=== PATIENT | female | born 1940 | race Caucasian/White ===

== ENCOUNTER 2016-06-05 16:40 | Emergency (ER) | payer MEDICARE ==
[~2016-06-05] VITALS: Ht 162.6 cm; Wt 44.5 kg
[~2016-06-05 16:40] MED LIST: ALBU8.5H8 INH; BENZ100C67 PO; FLUT1DIS5; HYDR-1189 PO; OMEP20CA10 PO; ONDA4TAB22 PO; ROPI0.252 PO; SPIRIVA IH; TYC3 PO
[2016-06-05 16:59] VITALS: BP 143/78; PULSE 111; RESP 16; TEMP 99.1; O2SAT 95
[2016-06-05] MEDS ORDERED: IPRATROPIUM/ALBUTEROL SULFATE 3 ML AMPUL.NEB INH ONE (17:00)
[2016-06-05] MEDS ORDERED: IPRATROPIUM/ALBUTEROL SULFATE 3 ML AMPUL.NEB ONE (17:00)
[2016-06-05] MEDS ORDERED: methylPREDNISolone SOD SUCC/PF 62.5 MG/ML VIAL IVP ONE (17:00)
[2016-06-05] MEDS ORDERED: WARF2TAB2 PO (17:45)
[2016-06-05] MEDS ORDERED: SIMV40TA5 PO (17:45)
[2016-06-05] MEDS ORDERED: GABA-531 PO (17:45)
[2016-06-05] MEDS ORDERED: METO-290 PO (17:45)
[2016-06-05] MEDS ORDERED: VENL37.510 PO (17:45)
[2016-06-05] MEDS ORDERED: NACL 0.9% 1,000 ML IV ONE (17:45)
[2016-06-05] MEDS ORDERED: FAMO40TA7 PO (17:45)
[2016-06-05] MEDS ORDERED: LORA1TAB PO (17:45)
[2016-06-05] MEDS ORDERED: METO-442 PO (17:45)
[2016-06-05 18:05] LABS: ABG TOTAL HEMOGLOBIN 11.9 G/dL (12.0-18.0); BLOOD GAS PH 7.486 (7.350-7.450)
[2016-06-05 18:06] LABS: BLOOD GAS COHb% 0.8 % (0.5-1.5); BLOOD GAS HHB 3.8 % (0.0-6.0); BLOOD O2Hb% 95.1 % (94.0-97.0)
[2016-06-05 19:38] LABS: BASOPHILS % (AUTO) 0.1 % (0.0-2.0); EOSINOPHILS % (AUTO) 0.1 % (0.0-4.0); HEMATOCRIT 27.8 % (36-48); HEMOGLOBIN 9.5 g/dL (12.0-16.0); LYMPHOCYTES # (AUTO) 0.7 K/uL (1.0-5.5); LYMPHOCYTES % (AUTO) 6.4 % (20.5-51.5); MEAN CORPUSCULAR HEMOGLOBIN 33 pg (27-31); MEAN CORPUSCULAR HGB CONC 34 % (32-36); MEAN CORPUSCULAR VOLUME 96 fL (79.0-98.0); MONOCYTES # (AUTO) 0.4 K/uL (0.0-1.0); MONOCYTES % (AUTO) 3.9 % (1.7-9.3); NEUTROPHILS # (AUTO) 9.9 K/uL (1.8-7.7); NEUTROPHILS % (AUTO) 89.5 % (40.0-70.0); PLATELET COUNT (AUTO) 346 K/uL (130-430); RED BLOOD CELL COUNT(AUTO) 2.89 MIL/uL (4.2-6.2); RED CELL DISTRIBUTION WIDTH 12.3 % (9.0-15.0)
[2016-06-05] MEDS ORDERED: cefTRIAXone 1 GM VIAL ONE (19:43)
[2016-06-05] MEDS ORDERED: cefTRIAXone 1 GM in D5W 50 ML IV ONE (19:45)
[2016-06-05 20:26] LABS: ANION GAP 9 (5-15); CALCIUM 8.9 mg/dL (8.4-11.0); CHLORIDE 101 mmol/L (98-107); CREATININE 0.67 mg/dL (0.55-1.30); GLUCOSE 106 mg/dL (70-99); POTASSIUM 4.3 mmol/L (3.5-5.1); SODIUM SERUM 140 mmol/L (136-145); UREA NITROGEN, BLOOD 13 mg/dL (8-21)
[2016-06-05 20:31] LABS: ALANINE AMINOTRANSFERASE 12 U/L (12-78); ALBUMIN 2.4 g/dL (3.4-4.8); ASPARTATE AMINOTRANSFERASE 12 U/L (10-37); TOTAL BILIRUBIN 0.3 mg/dL (0.0-1.0); TOTAL PROTEIN, SERUM 6.9 g/dL (6.4-8.3)
[2016-06-05] MEDS ORDERED: LevALBUTEROL HCL 1.25 MG/0.5 ML *CONC.* VIAL.NEB (XOPENEX CONC.) INH ONE (21:45)
[2016-06-05] MEDS ORDERED: IPRATROPIUM BROM 0.5 MG/2.5 ML VIAL.NEB (ATROVENT) IH ONE (21:45)
[2016-06-05 22:06] LABS: BLOOD, URINE NEGATIVE (NEGATIVE); CLARITY/URINE CLEAR (CLEAR); COLOR,URINE YELLOW (YELLOW); GLUCOSE,URINE NEGATIVE (NEGATIVE); KETONES,URINE 1+ (NEGATIVE); LEUKOCYTE ESTERASE ,URINE NEGATIVE (NEGATIVE); NITRITE, URINE NEGATIVE (NEGATIVE); PROTEIN URINE 1+ (NEGATIVE); UROBILINOGEN,URINE 0.2 (0.2-1.0)
[2016-06-05 22:14] LABS: BILIRUBIN,URINE NEGATIVE (NEGATIVE)
[2016-06-05 22:16] LABS: RBC,URINE 0-3 /HPF (0-3)
[2016-06-05 22:17] LABS: BACTERIA,URINE FEW /HPF (None Seen)
[2016-06-05 22:18] LABS: MUCUS,URINE None Seen /LPF (None Seen)
[2016-06-06 00:50] VITALS: BP 147/74; PULSE 115; RESP 16; TEMP 98.3; O2SAT 94
== END 2016-06-06 00:50 | disposition short-term general hospital (02) ==
LOC: SED 16:40
DX: J18.9 Pneumonia, unspecified organism (principal); J44.9 Chronic obstructive pulmonary disease, unspecified; D64.9 Anemia, unspecified; I10 Essential (primary) hypertension; Z99.81 Dependence on supplemental oxygen
CPT/HCPCS: 36415; 36600; 71010; 80053; 81000; 82803; 83605; 83880; 84484; 85025; 85730; 86710; 87040; 87086; 93005; 94640; 96361; 96365; 96375; 99285; J0696; J2930; J7030; J7060

== ENCOUNTER 2018-11-07 16:17 | Inpatient (IN) | payer OTHER, MEDICAID ==
[~2018-11-07] VITALS: Ht 167.6 cm; Wt 39.9 kg
[~2018-11-07 16:17] MED LIST changes: +BENZ-16 PO; -BENZ100C67 PO; +FAMO40TA7 PO; -FLUT1DIS5; +GABA-531 PO; -HYDR-1189 PO; +LORA1TAB PO; +METO-290 PO; +METO-442 PO; +SIMV40TA5 PO; -SPIRIVA IH; +VENL37.510 PO; +WARF2TAB2 PO
[2018-11-07 16:31] VITALS: BP_SYST 149
[2018-11-07 16:47] LABS: BILIRUBIN,URINE NEGATIVE (NEGATIVE); BLOOD, URINE NEGATIVE (NEGATIVE); CLARITY/URINE CLEAR (CLEAR); COLOR,URINE YELLOW (YELLOW); GLUCOSE,URINE NEGATIVE (NEGATIVE); KETONES,URINE NEGATIVE (NEGATIVE); NITRITE, URINE NEGATIVE (NEGATIVE); PROTEIN URINE NEGATIVE (NEGATIVE); UROBILINOGEN,URINE 0.2 (0.2-1.0)
[2018-11-07 16:55] LABS: LEUKOCYTE ESTERASE ,URINE NEGATIVE (NEGATIVE)
[2018-11-07 16:57] LABS: BASOPHILS % (AUTO) 0.4 % (0.0-2.0); EOSINOPHILS # (AUTO) 0.1 K/uL (0.0-0.4); EOSINOPHILS % (AUTO) 2.4 % (0.0-4.0); HEMATOCRIT 35.6 % (36-48); HEMOGLOBIN 11.8 g/dL (12.0-16.0); LYMPHOCYTES # (AUTO) 1.4 K/uL (1.0-5.5); LYMPHOCYTES % (AUTO) 26.8 % (20.5-51.5); MEAN CORPUSCULAR HEMOGLOBIN 33 pg (27-31); MEAN CORPUSCULAR HGB CONC 33 % (32-36); MEAN CORPUSCULAR VOLUME 99 fL (79.0-98.0); MONOCYTES # (AUTO) 0.7 K/uL (0.0-1.0); NEUTROPHILS # (AUTO) 3.1 K/uL (1.8-7.7); NEUTROPHILS % (AUTO) 57.4 % (40.0-70.0); PLATELET COUNT (AUTO) 214 K/uL (130-430); RED CELL DISTRIBUTION WIDTH 12.7 % (9.0-15.0); WHITE BLOOD COUNT (AUTO) 5.4 K/uL (4.8-10.8)
[2018-11-07 17:08] LABS: ANION GAP 5 (5-15); CALCIUM 9.8 mg/dL (8.4-11.0); CHLORIDE 99 mmol/L (98-107); GLUCOSE 74 mg/dL (70-99); POTASSIUM 4.3 mmol/L (3.5-5.1); SODIUM SERUM 138 mmol/L (136-145); UREA NITROGEN, BLOOD 20 mg/dL (8-21)
[2018-11-07 17:12] LABS: ALANINE AMINOTRANSFERASE 20 U/L (12-78); ALBUMIN 3.6 g/dL (3.4-4.8); ASPARTATE AMINOTRANSFERASE 16 U/L (10-37); INR 0.9 (0.8-1.2); PROTHROMBIN TIME 9.1 SECS (9.5-12.5); TOTAL BILIRUBIN 0.3 mg/dL (0.0-1.0)
[2018-11-07] MEDS ORDERED: ACET-2165 PO (18:02)
[2018-11-07] MEDS ORDERED: CYAN100010 PO (18:02)
[2018-11-07] MEDS ORDERED: HYDR-3606 PO (18:02)
[2018-11-07] MEDS ORDERED: IPRA4AER INH (18:02)
[2018-11-07] MEDS ORDERED: LORA-258 PO (18:02)
[2018-11-07] MEDS ORDERED: ASCO500T20 PO (18:02)
[2018-11-07] MEDS ORDERED: FLUT1BLS5 IH (18:02)
[2018-11-07] MEDS ORDERED: POLY17PO4 PO (18:02)
[2018-11-07] MEDS ORDERED: DOCU-144 PO (18:02)
[2018-11-07] MEDS ORDERED: BISA10SU61 RC (18:02)
[2018-11-07] MEDS ORDERED: ONDA4TAB5 PO (18:02)
[2018-11-07] MEDS ORDERED: MULT-976 PO (18:02)
[2018-11-07] MEDS ORDERED: PRAM0.253 PO (18:02)
[2018-11-07] MEDS ORDERED: MOM PO (18:02)
[2018-11-07 19:04] VITALS: BP_SYST 146
[2018-11-07 19:30] VITALS: BP_SYST 134
[2018-11-08 00:46] VITALS: BP_SYST 162
[2018-11-08] MEDS ORDERED: CYANOCOBALAMIN 1000 mCg TABLET PO PRN (01:15)
[2018-11-08] MEDS ORDERED: HYDROcodone/ACETAMIN 5-325 MG TAB (NORCO/ VICODIN) PO PRN (01:15)
[2018-11-08] MEDS ORDERED: POLYETHYLENE GLYCOL 3350, 17 GM/ POWD.PACK PO SCH (01:15)
[2018-11-08] MEDS ORDERED: roPINIRole HCL 0.25 MG ( REQUIP )TABLET PO SCH ×2 (01:15→21:00)
[2018-11-08] MEDS ORDERED: MILK OF MAGNESIA 30 ML UDC PO SCH (01:15)
[2018-11-08] MEDS ORDERED: ACETAMINOPHEN 325 MG TABLET PO PRN (01:15)
[2018-11-08] MEDS ORDERED: BISACODYL 10 MG/SUPPOSITORY RC PRN (01:15)
[2018-11-08] MEDS ORDERED: AZITHROMYCIN 250 MG in NS 250 ML IV SCH (01:45)
[2018-11-08] MEDS ORDERED: IPRATROPIUM/ALBUTEROL SULFATE 3 ML AMPUL.NEB (DUONEB) INH PRN (01:45)
[2018-11-08 02:00] VITALS: BP_SYST 162
[2018-11-08] MEDS ORDERED: IPRATROPIUM/ALBUTEROL SULFATE 3 ML AMPUL.NEB (DUONEB) INH SCH (02:00)
[2018-11-08] MEDS ORDERED: AZITHROMYCIN 500 MG/VIAL (ZITHROMAX) IV ONE (03:02)
[2018-11-08] MEDS: cefTRIAXone 1 GM in D5W 50 ML IV SCH (03:12)
[2018-11-08] MEDS ORDERED: AZITHROMYCIN 500 MG in NS 250 ML IV SCH (05:00)
[2018-11-08 08:19] VITALS: BP_SYST 137
[2018-11-08] MEDS ORDERED: OMEPRAZOLE Non-Formulary 20 MG CAPSULE.DR PO SCH (09:00)
[2018-11-08] MEDS ORDERED: FAMOTIDINE 20 MG TABLET PO SCH (09:00)
[2018-11-08] MEDS ORDERED: METOPROLOL TARTRATE 50 MG TABLET PO SCH (09:00)
[2018-11-08] MEDS ORDERED: Effexor 37.5 MG TAB PO SCH (09:00)
[2018-11-08] MEDS: BENZONATATE 100 MG CAPSULE (TESSALON) PO SCH ×2 (09:30→15:23)
[2018-11-08] MEDS: FAMOTIDINE 20 MG TABLET PO SCH ×2 (09:31→21:53)
[2018-11-08] MEDS: CYANOCOBALAMIN 1000 mCg TABLET PO SCH (09:31)
[2018-11-08] MEDS: ONDANSETRON HCL 4 MG/2 ML VIAL IVP PRN (11:19)
[2018-11-08 12:03] VITALS: BP_SYST 149
[2018-11-08] MEDS ORDERED: AZITHROMYCIN 500 MG in D5W 250 ML IV SCH (13:00)
[2018-11-08 13:56] LABS: PROTHROMBIN TIME 9.9 SECS (9.5-12.5)
[2018-11-08] MEDS ORDERED: WARFARIN SODIUM 5 MG TABLET PO ONE ×2 (16:15→18:00)
[2018-11-08 17:06] VITALS: BP_SYST 147
[2018-11-08] MEDS ORDERED: PRAM0.253 PO (17:29)
[2018-11-08] MEDS ORDERED: LORazepam 1 MG TABLET PO PRN (17:45)
[2018-11-08] MEDS ORDERED: WARFARIN SODIUM 2 MG TABLET PO SCH (18:00)
[2018-11-08 20:00] VITALS: BP_SYST 138
[2018-11-08] MEDS ORDERED: GABAPENTIN 300 MG CAPSULE PO SCH (21:00)
[2018-11-08] MEDS ORDERED: SIMVASTATIN 40 MG TABLET PO SCH (21:00)
[2018-11-08] MEDS: DOCUSATE SODIUM 100 MG CAPSULE PO SCH (21:00)
[2018-11-08] MEDS: PRAMIPEXOLE DI-HCL 0.25 MG TABLET PO SCH (21:53)
[2018-11-09] VITALS: BP_SYST 126
[2018-11-09] MEDS: cefTRIAXone 1 GM in D5W 50 ML IV SCH (02:17)
[2018-11-09 06:40] LABS: BASOPHILS % (AUTO) 0.8 % (0.0-2.0); EOSINOPHILS # (AUTO) 0.2 K/uL (0.0-0.4); EOSINOPHILS % (AUTO) 5.7 % (0.0-4.0); HEMATOCRIT 30.7 % (36-48); HEMOGLOBIN 10.5 g/dL (12.0-16.0); LYMPHOCYTES # (AUTO) 1.3 K/uL (1.0-5.5); LYMPHOCYTES % (AUTO) 36.5 % (20.5-51.5); MEAN CORPUSCULAR HEMOGLOBIN 33 pg (27-31); MEAN CORPUSCULAR HGB CONC 34 % (32-36); MEAN CORPUSCULAR VOLUME 97 fL (79.0-98.0); MONOCYTES # (AUTO) 0.4 K/uL (0.0-1.0); MONOCYTES % (AUTO) 12.1 % (1.7-9.3); NEUTROPHILS # (AUTO) 1.6 K/uL (1.8-7.7); NEUTROPHILS % (AUTO) 44.9 % (40.0-70.0); PLATELET COUNT (AUTO) 170 K/uL (130-430); RED BLOOD CELL COUNT(AUTO) 3.15 MIL/uL (4.2-6.2); RED CELL DISTRIBUTION WIDTH 12.4 % (9.0-15.0); WHITE BLOOD COUNT (AUTO) 3.6 K/uL (4.8-10.8)
[2018-11-09 06:44] LABS: ANION GAP 4 (5-15); CALCIUM 9.2 mg/dL (8.4-11.0); CHLORIDE 98 mmol/L (98-107); CREATININE 0.75 mg/dL (0.55-1.30); GLUCOSE 101 mg/dL (70-99); POTASSIUM 4.4 mmol/L (3.5-5.1); SODIUM SERUM 137 mmol/L (136-145); UREA NITROGEN, BLOOD 16 mg/dL (8-21)
[2018-11-09] MEDS: BUDESONIDE 0.5 MG/2 ML AMPUL.NEB INH SCH ×2 (07:00→20:03)
[2018-11-09] MEDS: IPRATROPIUM/ALBUTEROL SULFATE 3 ML AMPUL.NEB (DUONEB) INH SCH ×3 (07:00→19:51)
[2018-11-09 08:00] VITALS: BP_SYST 126
[2018-11-09] MEDS: FAMOTIDINE 20 MG TABLET PO SCH ×2 (08:08→21:33)
[2018-11-09] MEDS: DOCUSATE SODIUM 100 MG CAPSULE PO SCH ×2 (08:08→21:00)
[2018-11-09] MEDS: ASCORBIC ACID 500 MG TABLET PO SCH (08:08)
[2018-11-09] MEDS: CYANOCOBALAMIN 1000 mCg TABLET PO SCH (08:08)
[2018-11-09] MEDS ORDERED: NON-FORMULARY MEDICATION (Fluticasone/Umeclidin/Vilanter (Trelegy Ellipta 100-62.5-25) 1 E IH SCH (09:00)
[2018-11-09 09:55] LABS: PROTHROMBIN TIME 9.9 SECS (9.5-12.5)
[2018-11-09 12:37] VITALS: BP_SYST 135
[2018-11-09] MEDS: AZITHROMYCIN 500 MG in D5W 250 ML IV SCH (13:12)
[2018-11-09] MEDS: ONDANSETRON HCL 4 MG/2 ML VIAL IVP PRN (14:16)
[2018-11-09 16:13] VITALS: BP_SYST 134
[2018-11-09 20:00] VITALS: BP_SYST 128
[2018-11-09] MEDS: PRAMIPEXOLE DI-HCL 0.25 MG TABLET PO SCH (21:33)
[2018-11-10] VITALS: BP_SYST 149
[2018-11-10] MEDS: IPRATROPIUM/ALBUTEROL SULFATE 3 ML AMPUL.NEB (DUONEB) INH SCH ×3 (00:51→13:20)
[2018-11-10] MEDS: cefTRIAXone 1 GM in D5W 50 ML IV SCH (01:59)
[2018-11-10] MEDS: BUDESONIDE 0.5 MG/2 ML AMPUL.NEB INH SCH (07:45)
[2018-11-10 08:15] VITALS: BP_SYST 126
[2018-11-10] MEDS: FAMOTIDINE 20 MG TABLET PO SCH (08:29)
[2018-11-10] MEDS: CYANOCOBALAMIN 1000 mCg TABLET PO SCH (08:29)
[2018-11-10] MEDS: DOCUSATE SODIUM 100 MG CAPSULE PO SCH (08:29)
[2018-11-10] MEDS: ASCORBIC ACID 500 MG TABLET PO SCH (08:29)
[2018-11-10 12:35] VITALS: BP_SYST 140
[2018-11-10] MEDS: AZITHROMYCIN 500 MG in D5W 250 ML IV SCH (13:07)
[2018-11-10 16:50] VITALS: BP_SYST 135
[2018-11-10 17:11] VITALS: BP_SYST 135
[2018-11-10] MEDS ORDERED: LEVO750T45 PO (17:21)
== END 2018-11-10 20:00 | DRG 193 ==
LOC: SED 16:17 → STU 17:48 → SMU 11-09 16:38
PROVIDERS: ADMIT Family Medicine; ATTEND Family Medicine
DX: J18.9 Pneumonia, unspecified organism (principal); G93.41 Metabolic encephalopathy; J44.0 Chronic obstructive pulmonary disease with (acute) lower respiratory infection; J44.1 Chronic obstructive pulmonary disease with (acute) exacerbation; D64.9 Anemia, unspecified; I25.10 Atherosclerotic heart disease of native coronary artery without angina pectoris; K59.09 Other constipation; F41.9 Anxiety disorder, unspecified; M19.90 Unspecified osteoarthritis, unspecified site; Z99.81 Dependence on supplemental oxygen; Z79.899 Other long term (current) drug therapy
CPT/HCPCS: 36415; 71045; 80048; 80053; 81003; 83880; 84484; 85025; 85610-TC; 85730-TC; 87081; 93005; 94640; 94760; 99285; G0378; J0456; J0696; J2405; J7050; J7060; J7620; J7626

== ENCOUNTER 2020-05-23 17:26 | Inpatient (IN) | payer OTHER, MEDICAID, SELFPAY ==
[~2020-05-23] VITALS: Ht 162.6 cm; Wt 44.5 kg
[~2020-05-23 17:26] MED LIST changes: +ACET325T PO; -ALBU8.5H8 INH; +ASCO500T20 PO; -BENZ-16 PO; +BISA10SU61 RC; +CYAN100010 PO; +DOCU-144 PO; -FAMO40TA7 PO; +FLUT1BLS5 IH; -GABA-531 PO; +IPRA4AER INH; +LEVO750T45 PO; +LORA-258 PO; -LORA1TAB PO; -METO-290 PO; -METO-442 PO; +MOM PO; +MULT-976 PO; -OMEP20CA10 PO; -ONDA4TAB22 PO; +ONDA4TAB5 PO; +POLY17PO4 PO; +PRAM0.253 PO; -ROPI0.252 PO; -SIMV40TA5 PO; -TYC3 PO; -VENL37.510 PO; -WARF2TAB2 PO
[2020-05-23 17:39] VITALS: BP_SYST 169
--- NOTE | 2020-05-23 17:40 | NUR ---
Patient to ER bed 7 to gown for evaluation. Side rails up. Report given to MIRIAN HDZ.
--- NOTE | 2020-05-23 17:45 | NUR ---
Patient BIB BLS C/O abnormal labs. Patient nonverbal, skin pale, dry & flaky, respirations equal bilat, breath sounds coarse with cough. Patient sent by staff/[facility] for abnormal labs and decreased appetite.
--- NOTE | 2020-05-23 17:50 | NUR ---
# 20gauge angiocath placed to right wrist . Use of asceptic technique. Opsite placed over site. Blood return noted. Blood for lab drawn from site. Flushed with 10 cc of normal saline. No evidence of infiltration noted. Patient tolerated well.
--- NOTE | 2020-05-23 17:55 | NUR ---
# 16 FR In and Out catheter with use of sterile technique. Immediate return of 10 ml DARK YELLOW urine noted. Urine sample collected and sent to lab. Pt tolerated procedure WELL. Patient unable to toilet self.
--- NOTE | 2020-05-23 18:15 | NUR ---
# 20 gauge angiocath placed to LEFT WRIST . Use of asceptic technique. Opsite placed over site. Blood return noted. Blood for lab drawn from site. Flushed with 10 cc of normal saline. No evidence of infiltration noted. Patient tolerated well. Medicated per MD orders. IVF infusing with no s/s of infiltration at this time. Will cont to monitor
--- NOTE | 2020-05-23 18:20 | NUR ---
ER at bedside examining patient.
[2020-05-23] MEDS ORDERED: NACL 0.9% 1,000 ML IV ONE (18:30)
[2020-05-23 18:57] LABS: BILIRUBIN,URINE NEGATIVE (NEGATIVE); BLOOD, URINE 3+ (NEGATIVE); CLARITY/URINE CLOUDY (CLEAR); COLOR,URINE YELLOW (YELLOW); GLUCOSE,URINE TRACE (NEGATIVE); KETONES,URINE NEGATIVE (NEGATIVE); LEUKOCYTE ESTERASE ,URINE 2+ (NEGATIVE); NITRITE, URINE NEGATIVE (NEGATIVE); PROTEIN URINE 3+ (NEGATIVE); UROBILINOGEN,URINE 0.2 (0.2-1.0)
[2020-05-23 19:18] LABS: BACTERIA,URINE MODERATE /HPF (None Seen); MUCUS,URINE 1+ /LPF (None Seen); RBC,URINE 50-80 /HPF (0-3); WBC,URINE >100 /HPF (0-3)
[2020-05-23 19:19] LABS: COARSE GRANULAR CASTS,URINE 0-10 /LPF (None Seen); URINE AMORPHOUS URATE 2+ /HPF (None Seen)
--- NOTE | 2020-05-23 19:19 | NUR ---
ENDORSED CARE TO RELL HDZ
--- NOTE | 2020-05-23 19:20 | NUR ---
bedside pt report taken from engraver steel platebonnie espinoza
[2020-05-23] MEDS ORDERED: cefTRIAXone 1 GM IVPB PREMIX 50 ML IV ONE (19:30)
[2020-05-23 19:40] LABS: HEMATOCRIT 31.6 % (36-48); HEMOGLOBIN 10.6 g/dL (12.0-16.0); MEAN CORPUSCULAR HEMOGLOBIN 34 pg (27-31); MEAN CORPUSCULAR HGB CONC 34 % (32-36); MEAN CORPUSCULAR VOLUME 100 fL (79.0-98.0); PLATELET COUNT (AUTO) 195 K/uL (130-430); RED BLOOD CELL COUNT(AUTO) 3.14 MIL/uL (4.2-6.2); RED CELL DISTRIBUTION WIDTH 13.5 % (9.0-15.0); WHITE BLOOD COUNT (AUTO) 8.9 K/uL (4.8-10.8)
[2020-05-23 19:58] LABS: ANION GAP 8 (5-15); CALCIUM 9.1 mg/dL (8.4-11.0); CHLORIDE 112 mmol/L (98-107); CREATININE 1.48 mg/dL (0.55-1.30); GLUCOSE 199 mg/dL (70-99); POTASSIUM 4.1 mmol/L (3.5-5.1); SODIUM SERUM 151 mmol/L (136-145); UREA NITROGEN, BLOOD 45 mg/dL (8-21)
[2020-05-23 20:01] LABS: PROTHROMBIN TIME 9.9 SECS (9.5-12.5)
[2020-05-23 20:03] LABS: ALANINE AMINOTRANSFERASE 26 U/L (12-78); ALBUMIN 2.2 g/dL (3.4-4.8); ASPARTATE AMINOTRANSFERASE 22 U/L (10-37); TOTAL BILIRUBIN 0.3 mg/dL (0.0-1.0)
[2020-05-23] MEDS ORDERED: LOVI40 SQ (20:27)
[2020-05-23] MEDS ORDERED: LACT-47 PO (20:27)
[2020-05-23] MEDS ORDERED: DOXY100T2 PO (20:27)
[2020-05-23] MEDS ORDERED: DEC1 PO (20:27)
[2020-05-23 20:31] LABS: BAND % (MANUAL) 16 % (0-6); BASOPHILS % (MANUAL) 0 % (0-2); EOSINOPHILS % (MANUAL) 0 % (0-7); LYMPHOCYTES % (MANUAL) 4 % (20-46); MONOCYTES % (MANUAL) 2 % (0-11)
[2020-05-23] MEDS ORDERED: CYAN250014 PO (20:35)
[2020-05-23] MEDS ORDERED: ENOX40DI8 SQ (20:35)
[2020-05-23] MEDS ORDERED: ZINC50TA69 PO (20:35)
[2020-05-23] MEDS ORDERED: FAMOTIDINE PO (20:35)
[2020-05-23] MEDS ORDERED: CHOL500052 PO (20:35)
[2020-05-23] MEDS ORDERED: EPIN1AMP IM (20:35)
[2020-05-23] MEDS ORDERED: ZINC220T4 PO (20:35)
[2020-05-23] MEDS ORDERED: MEGE400O4 PO (20:35)
[2020-05-23] MEDS ORDERED: MELA1TAB29 PO (20:35)
--- NOTE | 2020-05-23 21:18 | NUR ---
pt resting quietly in bed vital signs stable will continue to monitor
[2020-05-23] MEDS ORDERED: EPINEPHrine 1 MG/ML AMP IM SCH (21:45)
[2020-05-23] MEDS ORDERED: ACETAMINOPHEN 325 MG TABLET PO PRN (21:45)
--- NOTE | 2020-05-23 21:46 | NUR ---
dr. pruittium notified of elevated troponin. no new orders received
[2020-05-23] MEDS ORDERED: VANCOMYCIN HCL 1 GM/NS PREMIX 250 ML IV ONE (22:00)
--- NOTE | 2020-05-23 22:15 | NUR ---
MD EDDY AT BEDSIDE EVALUATION PT
--- NOTE | 2020-05-23 22:20 | NUR ---
REPORT CALLED TO SARAH HERRERA PT TRANSPORTED VIA [facility] BY [facility] PT VITALS STABLE UPON TRANSPORT
--- NOTE | 2020-05-23 22:25 | NUR ---
CONSULT REASON FOR CONSULT: UTI AND COVID 19 VIRAL INFECTION PERSON I SPOKE WITH: [facility] CONSULTING PHYSICIAN: DR. LORENZO PASTORAL COUNSELOR PHYSICIAN: [phone] ORDERING PHYSICIAN: DR. DEMPSEY
--- NOTE | 2020-05-23 22:32 | NUR ---
ADMIT NOTE Received pt from ER to the floor with a diagnosis of UTI and covid 19. Admission process initiated. patient oriented to pain management, safety and call light-pt is none verbal.
[2020-05-23] MEDS ORDERED: VANCOMYCIN HCL 1000 MG/VIAL IV ONE (22:37)
[2020-05-23] MEDS ORDERED: MEROPENEM 500 MG VIAL IV ONE (22:37)
[2020-05-23] MEDS ORDERED: KCL 20 mEq in D5/0.45NS 1000mL 1,000 ML IV ONE (22:39)
[2020-05-23] MEDS: POTASSIUM CHLORIDE 20 MEQ in D5/0.45 NS 1,000 ML IV SCH (22:55)
[2020-05-23 23:23] VITALS: BP_SYST 164
[2020-05-23] MEDS: MEROPENEM 500 MG IVPB PREMIX 50 ML IV SCH (23:26)
--- NOTE | 2020-05-23 23:30 | NUR ---
NOTES: took over care from nurse Eh. pt. came in with altered level of consciousness. DX UTI/Covid, MS pt. from [facility]. pt.awake but confused. IV on left hand ,changed to D5 1/2 NS with 20 meq KCL @ 100 cc/hr. another IV site on rt. hand, both hands /arms ecchymotic, very fragile. SBP on high 160's. started on IV antibiotics ordered. on fall risk and contact isolation for Covid. noted productive cough but unable to spit it out. HOB elevated. O@ sat 96%.
[2020-05-24] MEDS: DEXAMETHASONE SOD PHOSPHATE 10 MG/ML VIAL IVP SCH ×2 (00:30→23:02)
[2020-05-24] MEDS ORDERED: MEROPENEM 500 MG VIAL IV ONE (00:34)
[2020-05-24 00:40] VITALS: BP_SYST 160
--- NOTE | 2020-05-24 00:45 | NUR ---
NOTES: pt. calm, resting but arousable. does not want her dentures taken out from her mouth. VS rechecked. SBP still @ 160's. kept O2 @ 2l/nc.
[2020-05-24] MEDS: MEROPENEM 500 MG IVPB PREMIX 50 ML IV SCH ×2 (06:00→14:29)
[2020-05-24] MEDS: POTASSIUM CHLORIDE 20 MEQ in D5/0.45 NS 1,000 ML IV SCH ×2 (06:51→17:09)
[2020-05-24 07:42] LABS: BASOPHILS % (AUTO) 0.1 % (0.0-2.0); HEMATOCRIT 34.9 % (36-48); HEMOGLOBIN 11.2 g/dL (12.0-16.0); LYMPHOCYTES # (AUTO) 0.5 K/uL (1.0-5.5); LYMPHOCYTES % (AUTO) 4.6 % (20.5-51.5); MEAN CORPUSCULAR HEMOGLOBIN 33 pg (27-31); MEAN CORPUSCULAR HGB CONC 32 % (32-36); MEAN CORPUSCULAR VOLUME 103 fL (79.0-98.0); MONOCYTES # (AUTO) 0.8 K/uL (0.0-1.0); MONOCYTES % (AUTO) 6.3 % (1.7-9.3); NEUTROPHILS # (AUTO) 10.5 K/uL (1.8-7.7); PLATELET COUNT (AUTO) 225 K/uL (130-430); WHITE BLOOD COUNT (AUTO) 11.8 K/uL (4.8-10.8)
[2020-05-24 08:08] LABS: ANION GAP 16 (5-15); CALCIUM 8.6 mg/dL (8.4-11.0); CHLORIDE 115 mmol/L (98-107); CREATININE 1.08 mg/dL (0.55-1.30); GLUCOSE 189 mg/dL (70-99); POTASSIUM 5.1 mmol/L (3.5-5.1); SODIUM SERUM 153 mmol/L (136-145); UREA NITROGEN, BLOOD 41 mg/dL (8-21)
[2020-05-24 08:30] VITALS: BP_SYST 127
[2020-05-24] MEDS ORDERED: LACTOSE FREE FOOD PO SCH (09:00)
[2020-05-24] MEDS ORDERED: NON-FORMULARY MEDICATION (Zinc sulfate 1 TAB) PO SCH (09:00)
[2020-05-24] MEDS ORDERED: ENOXAPARIN SODIUM 40 MG/0.4 ML SYRINGE SQ ONE (09:00)
[2020-05-24] MEDS ORDERED: NON-FORMULARY MEDICATION (Fluticasone/Umeclidin/Vilanter (Trelegy Ellipta 100-62.5-25) 1 E IH SCH (09:00)
[2020-05-24] MEDS ORDERED: NON-FORMULARY MEDICATION (Cyanocobalamin (Vitamin B-12) (Vitamin B12) 1,000 MCG) PO SCH (09:00)
--- NOTE | 2020-05-24 09:08 | NUR ---
Nutrition Update Kodi scale 12 noted. Pt admitted for UTI/COVID 19 Diet: Pureed BMI: 16.8 kg/m2 RD to follow per nutrition care standards.
--- NOTE | 2020-05-24 09:50 | NUR ---
CRITICAL VALUE RECEIVED CRITICAL TROPONIN LEVEL, HAD THE HOSPITAL SOCIAL WORKER TO KERRY GARIBAY, AWAITING RETURN PHONE CALL. Addendum: 05/24/20 at 1039 by Irvin Salazar RN JUST CALLED BACK ORDERS TO BE PUT IN
[2020-05-24] MEDS: CYANOCOBALAMIN 1000 mCg TABLET PO SCH (10:15)
[2020-05-24] MEDS: DOCUSATE SODIUM 100 MG CAPSULE PO SCH ×2 (10:15→21:00)
[2020-05-24] MEDS: MEGESTROL ACETATE 400 MG/10 ML UDC PO SCH ×2 (10:15→20:46)
[2020-05-24] MEDS: CHOLECALCIFEROL (VITAMIN D3) 5,000 UNIT TABLET PO SCH (10:15)
--- NOTE | 2020-05-24 11:34 | NUR ---
CONSULTATION PAGED/CALLED Reason for Consultation: INCREASE TROPNIN Person Who was Notified: CHELSEA Consulting Physician: ALEX Supervisor [employer] Specialty: CARDIAC Ordering Physician: KE
[2020-05-24 12:00] VITALS: BP_SYST 127
[2020-05-24 12:24] LABS: C-REACTIVE PROTEIN QUANT 10.2 mg/dL (0-0.5)
--- NOTE | 2020-05-24 13:00 | NUR ---
HEART RATE PAGED DR. DEMPSEY FOR INCREASED HEART RATE AND ALSO ENGINE LATHE SET UP OPERATOR TOOL CARDIAC
[2020-05-24] MEDS ORDERED: DILTIAZEM HCL 25 MG/5 ML VIAL ONE (13:38)
[2020-05-24] MEDS ORDERED: DILTIAZEM HCL 25 MG/5 ML VIAL IVP ONE (13:45)
[2020-05-24] MEDS ORDERED: METOPROLOL TARTRATE 50 MG TABLET PO ONE (14:15)
[2020-05-24 16:02] LABS: CKMB RELATIVE INDEX 22.1 (0.0-2.9); CREATINE KINASE MB 49.9 ng/mL (0-3.6)
[2020-05-24 16:30] VITALS: BP_SYST 107
[2020-05-24] MEDS: FAMOTIDINE 20 MG TABLET PO SCH (17:37)
--- NOTE | 2020-05-24 19:30 | NUR ---
CHANGE OF SHIFT: endorsed by dayshift. no resp. distress. was placed on classroom monitor for increase HR. on contact isolation.
[2020-05-24 20:30] VITALS: BP_SYST 113
[2020-05-24] MEDS: METOPROLOL TARTRATE 50 MG TABLET PO SCH (20:45)
[2020-05-24] MEDS ORDERED: PRAMIPEXOLE DI-HCL 0.25 MG TABLET PO SCH (21:00)
[2020-05-24] MEDS ORDERED: VANCOMYCIN HCL 500 MG in NS 100 ML IV SCH (21:00)
[2020-05-24] MEDS ORDERED: NON-FORMULARY MEDICATION (Melatonin/Pyridoxine HCl (B6) (Melatonin 3 mg Tablet) 1 TAB) PO SCH (21:00)
[2020-05-24] MEDS ORDERED: CEFEPIME 1 GM/VIAL (MAXIPIME) ONE (21:07)
--- NOTE | 2020-05-24 21:30 | NUR ---
NOTES: IV site got infiltrated, another IV site came out on rt. hand. wiil try to insert another one.
[2020-05-24] MEDS: CEFEPIME 0.5 GM in D5W 50 ML IV SCH (21:51)
--- NOTE | 2020-05-24 22:07 | NUR ---
page page doctor morales
[2020-05-24] MEDS: ENOXAPARIN SODIUM 40 MG/0.4 ML SYRINGE SQ SCH (22:30)
--- NOTE | 2020-05-24 22:30 | NUR ---
NOTES: asked nurse Serene to insert but unsuccessful. charge nurse will try. both arms bruised up, current site leaking.
--- NOTE | 2020-05-24 22:50 | NUR ---
NOTES: called Dr. Hernandez and informed him about no visible IV access, stiil trying to insert IV. ordered for midline cath tomorrow. Addendum: 05/25/20 at 0028 by Lary Reyes RN Late entry after multiple IV attempts, nurse Best started Iv site on left forearm with gauge # 22
--- NOTE | 2020-05-24 23:13 | NUR ---
PAGED PAGED DOCTOR JOHNSON
[2020-05-24] MEDS ORDERED: METOPROLOL TARTRATE 5 MG/5 ML VIAL IVP ONE (23:30)
--- NOTE | 2020-05-24 23:35 | NUR ---
NOTES: pt. daughter called and informed her about midline placement that MD ordered, telephone consent obtained with second nurse Estephania witnessed.
[2020-05-24] MEDS ORDERED: METOPROLOL TARTRATE 5 MG/5 ML VIAL ONE (23:44)
--- NOTE | 2020-05-24 23:44 | NUR ---
NOTES; called Dr. Zuniga, informed him about pt. HR been 140-145, on atrial fib. ordered Lopressor IV.
--- NOTE | 2020-05-24 23:58 | NUR ---
NOTES: Lopressor 5 mg. IVP given slowly over 1 min. VS checked BP 114/74 HR 140. Addendum: 05/25/20 at 0032 by Lary Reyes RN late entry high alert medication verified with .
[2020-05-25] VITALS: BP_SYST 114
--- NOTE | 2020-05-25 00:30 | NUR ---
NOTES: Dr. Cerda never called back, suppose to inform him that Remdesivir IV not available per nursing shrink pit supervisor, paged 2x.
--- NOTE | 2020-05-25 02:00 | NUR ---
NOTES: HR still [id number], atrial fib. pt. sleeping with her mouth open. condition guarded.
[2020-05-25] MEDS: POTASSIUM CHLORIDE 20 MEQ in D5/0.45 NS 1,000 ML IV SCH ×2 (03:03→12:56)
--- NOTE | 2020-05-25 05:00 | NUR ---
NOTES: partial am care /erick care done, incontinent of urine. repositioned. IVF patent. for insertion of midline cath this am.
[2020-05-25] MEDS ORDERED: METOPROLOL TARTRATE 5 MG/5 ML VIAL IVP ONE (06:45)
--- NOTE | 2020-05-25 06:47 | NUR ---
CLOSING NOTES; called remote pharmacy about the IV Lopressor, spoke to Floyd and need to enter a new order. pt. asleep at this time HR still up to 140-145. IV site still intact. for midline placement this am. for further care and assist. will endorse to incoming shift.
[2020-05-25 07:10] LABS: ALANINE AMINOTRANSFERASE 21 U/L (12-78); ALBUMIN 1.9 g/dL (3.4-4.8); ANION GAP 12 (5-15); BILIRUBIN,DIRECT 0.1 mg/dL (0.0-0.3); CALCIUM 8.7 mg/dL (8.4-11.0); CHLORIDE 115 mmol/L (98-107); CREATININE 1.32 mg/dL (0.55-1.30); GLUCOSE 238 mg/dL (70-99); PHOSPHORUS 2.9 mg/dL (2.7-4.5); POTASSIUM 5.7 mmol/L (3.5-5.1); SODIUM SERUM 150 mmol/L (136-145); TOTAL BILIRUBIN 0.4 mg/dL (0.0-1.0); UREA NITROGEN, BLOOD 52 mg/dL (8-21)
--- NOTE | 2020-05-25 07:10 | NUR ---
NOTES; HR still up 150. vs checked. BP 111/71, 2nd dose of IV Lopressor given as ordered. endorsed to day shift nurse.
--- NOTE | 2020-05-25 07:11 | NUR ---
Nutrition Update Kodi Scale 12 noted. Pt admitted for UTI, COVID-19 Diet: Pureed BMI: 16.8 kg/m2 RD to follow per nutrition care standards.
[2020-05-25 07:18] LABS: HEMATOCRIT 33.9 % (36-48); HEMOGLOBIN 10.7 g/dL (12.0-16.0); LYMPHOCYTES # (AUTO) 0.5 K/uL (1.0-5.5); LYMPHOCYTES % (AUTO) 6.3 % (20.5-51.5); MEAN CORPUSCULAR HEMOGLOBIN 33 pg (27-31); MEAN CORPUSCULAR HGB CONC 32 % (32-36); MEAN CORPUSCULAR VOLUME 105 fL (79.0-98.0); MONOCYTES # (AUTO) 0.2 K/uL (0.0-1.0); NEUTROPHILS # (AUTO) 7.3 K/uL (1.8-7.7); NEUTROPHILS % (AUTO) 90.7 % (40.0-70.0); PLATELET COUNT (AUTO) 179 K/uL (130-430); RED BLOOD CELL COUNT(AUTO) 3.24 MIL/uL (4.2-6.2); RED CELL DISTRIBUTION WIDTH 14.5 % (9.0-15.0)
[2020-05-25 07:24] LABS: ASPARTATE AMINOTRANSFERASE 50 U/L (10-37)
[2020-05-25] MEDS: FAMOTIDINE 20 MG TABLET PO SCH (07:33)
--- NOTE | 2020-05-25 07:37 | NUR ---
CRITICAL VALUE PAGED DR. JOHNSON REGARDING PATIENT INCREASE LAB VALUES AND INCREASE HR. Addendum: 05/25/20 at 0746 by Irvin Salazar RN DR. JOHNSON ON THE FLOOR.. INFORMED HIM OF POTASSIUM, HR, AND TROP LEVEL
[2020-05-25 08:00] VITALS: BP_SYST 111
[2020-05-25 09:26] LABS: C-REACTIVE PROTEIN QUANT 12.5 mg/dL (0-0.5)
[2020-05-25] MEDS: CEFEPIME 0.5 GM in D5W 50 ML IV SCH (10:05)
[2020-05-25] MEDS: DOCUSATE SODIUM 100 MG CAPSULE PO SCH (10:05)
[2020-05-25] MEDS: METOPROLOL TARTRATE 50 MG TABLET PO SCH (10:05)
[2020-05-25] MEDS: MEGESTROL ACETATE 400 MG/10 ML UDC PO SCH (10:06)
[2020-05-25] MEDS: CHOLECALCIFEROL (VITAMIN D3) 5,000 UNIT TABLET PO SCH (10:06)
[2020-05-25] MEDS: CYANOCOBALAMIN 1000 mCg TABLET PO SCH (10:06)
[2020-05-25] MEDS: ENOXAPARIN SODIUM 40 MG/0.4 ML SYRINGE SQ SCH (10:06)
[2020-05-25 11:50] VITALS: BP_SYST 142
--- NOTE | 2020-05-25 12:30 | NUR ---
Dietitian Recommendations *Recommend: Pureed Renal standard diet w/ Nepro BID. *Encourage PO intake. *Consider alternative method of feeding pt if poor PO persists. Please see Nutritional Assessment for details SYLWIA, RD
--- NOTE | 2020-05-25 13:20 | NUR ---
PATIENT CARE WENT INTO PATIENT ROOM TO CHANGE HER AND SHE WAS GRASPING FOR AIR. HER 02 WAS LOW AND I COULDN'T GET IT BACK UP. I CALLED [facility], BUT THEY HAD CHANGED HER TO DNR. I CHANGED HER NC TO FACE MASK TO HELP HER BREATH A LITTLE MORE. DR. DEMPSEY WAS INFORMED. Addendum: 05/25/20 at 1544 by Irvin Salazar RN 1515 WENT INTO THE ROOM AND PATIENT WASN'T BREATHING. 151 CALLED AND INFORMED THE DAUGHTER YESSENIA OF THE PATIENTS PASSING. WAS PAGED WELL.
[2020-05-25] MEDS ORDERED: SODIUM POLYSTYRENE SULFONATE 15 GM/60 ML UDBTL RC ONE (13:30)
--- NOTE | 2020-05-25 13:54 | NUR ---
Drywall Contractor/Code Status/Discharge Planning/Mortuary Phoned [facility], p [phone] f [phone], where patient resides. Patient is on bed hold and they expect to accept patient back upon discharge. Discussed the case with Dr Hernandez, who agreed that DNR code status is appropriate for patient. Phoned patient's daughter, Kemi [phone]. Kemi confirmed that, after her conversation with Dr Zuniga, she wished patient to have a DNR code status. Patient has prior mortuary arrangements made with [facility]. Kemi will look to see if she has any additional information/contact numbers. Kemi stated that, upon discharge, she would want patient to return to [facility]. Discharge Plan Assessment completed. No other questions or concerns.
== END 2020-05-25 15:15 | disposition expired | DRG 871 ==
LOC: SED 17:26 → SMU 20:40 → STU 05-24 13:40
PROVIDERS: ADMIT Family Medicine; ATTEND Family Medicine
PROC: XW033E5 Introduction of Remdesivir Anti-infective into Peripheral Vein, Percutaneous Approach, New Technology Group 5 (ICD-10-PCS; principal; 2020-05-24)
PROC: 05HY33Z Insertion of Infusion Device into Upper Vein, Percutaneous Approach (ICD-10-PCS; 2020-05-25)
DX: A41.89 Other specified sepsis (principal); U07.1 COVID-19; J12.82 Pneumonia due to coronavirus disease 2019; J96.91 Respiratory failure, unspecified with hypoxia; I21.A1 Myocardial infarction type 2; N39.0 Urinary tract infection, site not specified; N17.9 Acute kidney failure, unspecified; J44.0 Chronic obstructive pulmonary disease with (acute) lower respiratory infection; I45.9 Conduction disorder, unspecified; M62.50 Muscle wasting and atrophy, not elsewhere classified, unspecified site; Z66 Do not resuscitate; Z51.5 Encounter for palliative care; B96.1 Klebsiella pneumoniae [K. pneumoniae] as the cause of diseases classified elsewhere; E86.0 Dehydration; I48.91 Unspecified atrial fibrillation; I25.10 Atherosclerotic heart disease of native coronary artery without angina pectoris; F03.90 Unspecified dementia, unspecified severity, without behavioral disturbance, psychotic disturbance, mood disturbance, and anxiety; I10 Essential (primary) hypertension; I25.2 Old myocardial infarction; Z74.01 Bed confinement status; Z87.11 Personal history of peptic ulcer disease; Z87.891 Personal history of nicotine dependence; Z99.81 Dependence on supplemental oxygen
CPT/HCPCS: 36415; 71045; 80048; 80053; 80076; 81000-TC; 82550-TC; 82553-TC; 83605; 83735-TC; 84100-TC; 84484; 85007; 85025; 85027; 85379; 85610-TC; 85730-TC; 86140; 87040-TC; 87081; 87086; 93005; 93306; 96361; 96365; 99291; G0378; J0692; J0696; J1100; J1650; J2185; J3370; J3480; J3490; J7050; J7060